=== PATIENT | female | born 1990 | race Asian ===

== ENCOUNTER → 2018-03-25 08:17 | Outpatient (CLI) | payer BC, SELFPAY ==
--- NOTE | 2018-03-25 | DI.US.S_ITS ---
PROCEDURE: US OB >= 14 WEEKS FETUS INDICATIONS: ANATOMY SCAN OUTSIDE/PRIOR DATING DATA: Last menstrual period (LMP): Unknown. LMP-based estimated date of delivery (HAMMAD): N./A.. First dating scan (date and location): 03/25/18. Estimated date of delivery (HAMMAD) from first dating scan: 08/18/18. TECHNIQUE: Real-time scanning was performed of the fetus, with image documentation and biometric measurements. Endovaginal scanning: Not requested. COMPARISON: None. FINDINGS: General: A single living intrauterine gestation is present. Presentation: Breech. Placenta: Placental position is posterior fundal, without previa. Amniotic fluid index: 12.0 cm, normal range is 5-24 cm. heart rate: 125 beats per minute. Maternal cervical canal: 4.5 cm long. Normal lower limit is 2.5 cm. biometrics: Biparietal diameter: 19 weeks 4 days Head circumference: 19 weeks 2 days Abdominal circumference: 19 weeks 2 days Femur length: 18 weeks 4 days Estimated gestational age from initial scan: not applicable. Composite gestational age from present scan: 19 weeks 1 day Estimated weight and percentile: 260 g Measurement variability for biometric dating: +/- 7 days from 14 weeks to 15 weeks 6 days gestation, +/- 10 days from 16 weeks to 21 weeks 6 days gestation, +/- 2 weeks from 22 weeks to 27 weeks 6 days gestation, +/- 3 weeks for 28 weeks gestation or later. weight reference: 4500 g or EFW >90/95% is considered macrosomia or large for gestational age. EFW <10% is small for gestational age. EFW 5% or less is considered intra-uterine growth restriction. Anatomic survey: Neuro: Ventricles are non-dilated at less than 10 mm. Cisterna magna is normal at 3-11 mm. Cerebellum is normal in size and morphology. Nuchal skin fold: Normal at less than 6 mm between 14-21 weeks gestational age. Face: Nose and lips are normal in facial profile is not well-seen. Spine: No evidence for spina bifida. Heart: 4-chambered heart is present, with normal ventricular outflow tracts. Diaphragm: Diaphragm is intact. Stomach: Left-sided stomach is present. Kidneys: No hydronephrosis. Normal is less than 5 mm in 2nd trimester, less than 7 mm in 3rd trimester. Cord: 3-vessel cord has orthotopic insertion. Bladder: Normal in size. Extremities: All 4 extremities identified. IMPRESSION: 1. Single living IUP present with composite gestational age of 19 weeks 1 day. 2. Facial profile not well-visualized otherwise normal anatomy. Dictated by: Charly Gunderson [facility] Interpreted: Mian Marcus MD on 03/25/2018 at 10:29 Approved by: Mian Marcus M.D. on 03/25/2018 at 14:50
== END ==
PROVIDERS: PCP Midwife; Visit Provider Midwife
DX: Z36.89 Encounter for other specified antenatal screening (principal); Z3A.19 19 weeks gestation of pregnancy
CPT/HCPCS: 76811